=== PATIENT | male | born 1985 | race Caucasian/White ===

== ENCOUNTER 2019-01-14 21:01 | Emergency (ER) | payer MEDICAID, OTHER ==
[2019-01-14] MEDS ORDERED: NS 1,000 ML IV ONE (21:15)
[2019-01-14] MEDS ORDERED: fentaNYL 100 MCG/2 ML INJ IVP ONE ×2 (21:15→22:22)
[2019-01-14 21:23] LABS: PLATELET COUNT 192 10^3/uL (150-400)
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
[2019-01-14] MEDS ORDERED: fentaNYL 100 MCG/2 ML INJ ONE (22:21)
[2019-01-14 23:39] VITALS: BP 136/96
[2019-01-14] MEDS ORDERED: LIDOCAINE 4%/MENTHOL 1% PATCH TD ONE ×2 (23:49→23:50)
[2019-01-15] MEDS ORDERED: PATCH REMOVAL 1 EA PATCH TD SCH (21:00)
== END 2019-01-14 23:52 | disposition home or self-care (01) ==
DX: R56.9 Unspecified convulsions (principal); F10.231 Alcohol dependence with withdrawal delirium; M48.54XA Collapsed vertebra, not elsewhere classified, thoracic region, initial encounter for fracture; E86.9 Volume depletion, unspecified
CPT/HCPCS: 96374; J3010

== ENCOUNTER 2019-02-02 20:03 | Emergency (ER) | payer MEDICAID | END 2019-02-02 20:43 | disposition home or self-care (01) ==